=== PATIENT | female | born 1975 | race Caucasian/White ===

== ENCOUNTER → 2020-05-02 | Outpatient (CLI) | payer BC ==
[2020-05-02 14:19] LABS: Basophils # (A) 0.1 k/uL (0-0.2); Basophils % (A) 1 %; Eosinophils # (A) 0.3 k/uL (0-0.7); Eosinophils % (A) 4 %; HCT 41.5 % (34.0-46.0); HGB 13.9 gm/dL (11.4-16.0); Lymphocytes # (A) 1.8 k/uL (1.0-4.8); Lymphocytes % (A) 20 %; MCH 34.9 pg (25.0-35.0); MCHC 33.4 g/dL (31.0-37.0); MCV 104.6 fL (80.0-100.0); Macrocytosis Slight; Mean Platelet Volume 7.8; Monocytes # (A) 0.3 k/uL (0-1.0); Monocytes % (A) 4 %; Neutrophils # (A) 6.3 k/uL (1.3-7.7); Neutrophils % (A) 71 %; Platelet Count 322 k/uL (150-450); RBC 3.97 m/uL (3.80-5.40); RDW 12.5 % (11.5-15.5); WBC 8.9 k/uL (3.8-10.6)
== END | disposition home or self-care (01) ==
LOC: LABPAT 13:14
PROVIDERS: ATTEND Obstetrics & Gynecology
DX: Z01.818 Encounter for other preprocedural examination (principal); I10 Essential (primary) hypertension; N92.0 Excessive and frequent menstruation with regular cycle
CPT/HCPCS: 36415; 85025; 93005

== ENCOUNTER 2020-05-13 09:19 | Day surgery (SDC) | payer BC ==
[2020-05-05 16:04] VITALS: BMI 40.7
--- NOTE | 2020-05-12 17:18 | HP ---
HISTORY AND PHYSICAL HISTORY OF PRESENT ILLNESS: The patient is a 44-year-old 3, para 3-0-0-3, who presents with a history of significant menorrhagia. Her cycles are lasting a full 6-7 days and are very heavy with clots with occasional bleeding through her protection. She was counseled regarding options for treatment and requested to undergo diagnostic hysteroscopy with NovaSure endometrial ablation. Endometrial biopsy performed in the office demonstrated benign findings. She does have a tubal ligation in place for contraception. PAST MEDICAL HISTORY: Significant for borderline hypertension. PAST SURGICAL HISTORY: She has undergone ankle surgery as well as carpal tunnel surgery bilaterally. She additionally had a section in the past, cholecystectomy, diagnostic laparoscopy, tonsillectomy, and tubal ligation. There have been no anesthetic concerns. OBSTETRICAL HISTORY: 3, para 3-0-0-3 with 2 term vaginal deliveries, both following a primary section. Method of contraception is tubal ligation. GYNECOLOGIC HISTORY: Unremarkable with no history of any infections to include STDs. FAMILY HISTORY: Noncontributory. SOCIAL HISTORY: The patient is and does work outside the home at [employer]. She is a nonsmoker and reports occasional alcohol. No other social concerns. CURRENT MEDICATIONS: Include diclofenac 75 mg twice daily, hydrochlorothiazide 25 mg daily, Lexapro 20 mg daily. Motrin as needed, multivitamin daily, and Zocor 20 mg daily. ALLERGIES: No known drug allergies. REVIEW OF SYSTEMS: Confined to history of present illness. PHYSICAL EXAMINATION: Vital signs are stable. The patient is afebrile. In general, this is a well- developed, moderately obese white female in no acute distress. Her heart has a regular rhythm and rate without murmur. Her lungs are clear to auscultation bilaterally in all gaviria. Her abdomen is obese, nondistended, has normoactive bowel sounds, soft, nontender, without any palpable masses, hepatosplenomegaly, or hernias. Her extremities without any cyanosis, clubbing, or edema and are nontender to palpation bilaterally. Pelvic examination demonstrates normal external genitalia and BUS with normal vaginal mucosa and cervix. There is no cervical motion tenderness. Uterus is approximately 6 weeks in size, anteverted, mobile, nontender, normal in shape. The adnexa are normal and nontender without mass bilaterally. ASSESSMENT AND PLAN: Menorrhagia: After discussing multiple different options for treatment, the patient requested to proceed with diagnostic hysteroscopy with NovaSure endometrial ablation. The risks and complications of the procedure have been thoroughly discussed including the risks for bleeding, bleeding requiring transfusion, infection, and injury to local structures to specifically include uterine perforation, Asherman syndrome, and subsequent hematometra. She has understood all these and has agreed to proceed. We are scheduled for surgery on the morning of May 13, 2020 for the procedures as outlined above. MMODL / IJN: [id number] /
[~2020-05-13 09:19] MED LIST: DEXAMETHASONE SOD PHOSPHATE 10 MG/ML 1 ML VIAL IV ONE; HYDROmorphone 0.5 MG/0.5 ML SYRINGE IVP PRN; MIDAZOLAM 2 MG/2 ML VIAL IV PRN; ONDANSETRON 4 MG/2 ML VIAL IVP ONE; Pre Op ABX Message 1 EACH MISC MISCELLANE ONE
[2020-05-13] MEDS: LACTATED RINGERS 1,000 ML IV SCH ×2 (10:15→10:56)
[2020-05-13] MEDS: LIDOCAINE 1% (10MG/ML) FOR IV START INTRADERMA PRN ×2 (10:15→10:28)
[2020-05-13] MEDS ORDERED: SCOPOLAMINE 1.5MG/72HR PATCH TRANSDERM ONE (10:31)
[2020-05-13] MEDS ORDERED: LIDOCAINE 1% INJ 10MG/ML (20 ML MDV) ONE (10:48)
[2020-05-13] MEDS ORDERED: PROPOFOL 10 MG/ML 20 ML VIAL IV ONE (10:48)
[2020-05-13] MEDS ORDERED: KETOROLAC 15 MG/ML 1 ML VIAL ONE (10:48)
[2020-05-13] MEDS ORDERED: fentaNYL (PF) 50 MCG/ML 2 ML AMP ONE (10:48)
[2020-05-13] MEDS ORDERED: SUCCINYLCHOLINE CHLORIDE 100 MG/5 ML SYR IV ONE (10:48)
[2020-05-13] MEDS ORDERED: MIDAZOLAM 2 MG/2 ML VIAL ONE (10:48)
[2020-05-13] MEDS ORDERED: METOCLOPRAMIDE 5 MG/ML 2 ML VIAL IVP PRN (11:29)
[2020-05-13] MEDS ORDERED: ONDANSETRON 4 MG/2 ML VIAL IVP PRN (11:29)
[2020-05-13] MEDS ORDERED: SIMETHICONE 80 MG CHEWABLE PO PRN (11:29)
[2020-05-13] MEDS ORDERED: IBUPROFEN 600 MG TAB PO PRN (11:29)
[2020-05-13] MEDS ORDERED: diphenhydrAMINE 50 MG/ML 1 ML VIAL IVP PRN (11:29)
[2020-05-13] MEDS ORDERED: Acetaminophen-Codeine 300-30mg TAB PO PRN ×2 (11:29)
[2020-05-13] MEDS ORDERED: KETOROLAC 15 MG/ML 1 ML VIAL IVP PRN (11:29)
[2020-05-13] MEDS ORDERED: LACTATED RINGERS 1,000 ML IV SCH (11:30)
--- NOTE | 2020-05-13 11:35 | P.OP ---
Date of Procedure: 05/13/20 Preoperative Diagnosis: #1. Menorrhagia Postoperative Diagnosis: Same Procedure(s) Performed: #1. Diagnostic hysteroscopy #2. NovaSure endometrial ablation Anesthesia: RIC Surgeon: Micah Gagnon Estimated Blood Loss (ml): 5 IV fluids (ml): 600 Urine output (ml): 10 Pathology: none sent Condition: stable Disposition: PACU Operative Findings: Preoperative pelvic examination demonstrated a 5-6 week midplane mobile normal shaped uterus with normal adnexa bilaterally. Intraoperatively, the uterus sounded to approximately 9.5 cm with a cervical length of approximately 4 cm. Using the hysteroscope, the entire cavity was viewed including the bilateral tubal ostia. There is a small amount of shaggy tissue in the lower uterine segment but otherwise no pathology was noted of any kind. The settings for the NovaSure tool for a length of 5.5 cm, a width of 3.6 cm for a total power 109 W. After total run time of 1 minute and 51 seconds, the base unit read "procedure complete." The postprocedural result appeared excellent. The patient is a relatively poor candidate for vaginal hysterectomy should it become necessary. Description of Procedure: The patient was prepped and draped in usual fashion after general endotracheal anesthesia was administered by the anesthesiologist. A weighted speculum was placed and the bladder was draining approximately 10 mL of clear juarez urine. The anterior lip of the cervix was grasped with a single-tooth tenaculum and uterus sounded to 9.5 cm with a cervical length of 4 cm as noted above. Serial dilation was carried out to admit the diagnostic hysteroscope which was placed to the fundus and uterus distended with saline. The findings are as noted above with no significant pathology of any kind and the bilateral tubal ostia were seen. The scope was set aside and the NovaSure tool placed within the endometrial cavity and seated well. The settings were as noted above, a length of 5.5 cm, a width of 3.6 cm for a total power of 109 W. The cavity check was attempted and passed without difficulty in the tool was enabled. The run was started and lasted for 1 minute and 51 seconds after which time the base unit read "procedure complete." The tool was closed, removed, and discarded and the diagnostic scope replaced. The result appeared to be excellent. All instrumentation was then removed from the patient. There is some ongoing bleeding from one of the tenaculum sites which was made hemostatic with pressure. Estimated blood loss for the case was less than 5 mL. There were no complications. All sponge, instrument, and needle counts were correct. The patient tolerated the procedure well and proceeded to the recovery room in stable condition.
[2020-05-13] MEDS ORDERED: LACTATED RINGERS 1,000 ML IV ONE (11:41)
[2020-05-13 11:57] VITALS: TEMP 98.9
[2020-05-13 13:27] VITALS: BP 147/85; PULSE 67; RESP 16
== END 2020-05-13 14:04 | disposition home or self-care (01) ==
LOC: OR 09:19
PROVIDERS: ATTEND Obstetrics & Gynecology
DX: N92.0 Excessive and frequent menstruation with regular cycle (principal); I10 Essential (primary) hypertension; Z98.890 Other specified postprocedural states; E78.49 Other hyperlipidemia; F32.9 Major depressive disorder, single episode, unspecified; K21.9 Gastro-esophageal reflux disease without esophagitis; Z90.49 Acquired absence of other specified parts of digestive tract; Z98.51 Tubal ligation status; Z98.891 History of uterine scar from previous surgery; Z79.899 Other long term (current) drug therapy
CPT/HCPCS: 81025; 84132; 58563; J2250; J1100; J2405; J2001; J3010; J1885; J0330; J2704